=== PATIENT | male | born 1970 | race Caucasian/White ===

== ENCOUNTER → 2020-12-02 11:02 | Outpatient (CLI) | payer BC, SELFPAY ==
--- NOTE | ~2020-12-02 | XR_ITS ---
EXAMINATION: XR foot RT min 3V DATE: 12/02/2020 11:15 INDICATION: Diabetic neuropathy with ulceration at the distal right first and second metatarsals TECHNIQUE: Dorsoplantar, two oblique and lateral views of the right foot were obtained. COMPARISON: None. FINDINGS: Bone alignment is normal. There is a subtle linear lucency projecting along the medial side of the ar ticular cortex at the base of the first proximal phalanx suspicious for nondisplaced fracture.. There is subtle flattening of the articular surface at the head of the second metatarsal without underlyin g lucency or sclerosis which could represent sequela chronic osteonecrosis (Freiberg's infraction). M ild osteoarthritis at the first metatarsophalangeal and a few tarsometatarsal and interphalangeal shane nts. No cortical erosions or periosteal reaction. Small Achilles calcaneal spur. Soft tissues are unr emarkable. IMPRESSION: 1. Subtle linear lucency extending across the articular cortex at the medial base of the right first proximal phalanx suspicious for nondisplaced fracture. 2. Possible chronic osteonecrosis at the head of the second metatarsal with subtle flattening of the articular cortex but without subarticular lucency or sclerosis. Reviewed, dictated and finalized at location B. IMPRESSION: 1. Subtle linear lucency extending across the articular cortex at the medial ba se of the right first proximal phalanx suspicious for nondisplaced fracture. 2. Possible chronic osteonecrosis at the head of the second metatarsal with sub tle flattening of the articular cortex but without subarticular lucency or scle rosis.
== END ==
PROVIDERS: PCP Physician Assistant Medical; Visit Provider Physician Assistant Medical
DX: E13.40 Other specified diabetes mellitus with diabetic neuropathy, unspecified (principal); S91.309A Unspecified open wound, unspecified foot, initial encounter; X58.XXXA Exposure to other specified factors, initial encounter
CPT/HCPCS: 73630

== ENCOUNTER 2020-12-23 12:22 | Outpatient (CLI) | payer BC, SELFPAY ==
--- NOTE | ~2020-12-23 | XR_ITS ---
XR foot RT min 3V DATE: 12/23/2020 12:57 INDICATION: Puncture wound between first and second toe 2 months ago TECHNIQUE: 4 views COMPARISON: 12/02/2020 right foot FINDINGS: There is again suggestion of a linear nondisplaced intra-articular fracture of the medial a spect of the base of the proximal phalanx of the first digit. No new bone formation/healing is eviden t. There is mild osteoarthritis at the first metatarsophalangeal joint. Mild posterior calcaneal enthesopathy. No other fracture or dislocation, periosteal reaction or bone destruction is detected. IMPRESSION: Subtle nondisplaced linear intra-articular fracture of the medial base of the proximal ph alanx of the first digit Mild osteoarthritic arthritis at the first metatarsophalangeal joint Mild posterior calcaneal enthesopathy Reviewed, dictated and finalized at location A. IMPRESSION: Subtle nondisplaced linear intra-articular fracture of the medial b ase of the proximal phalanx of the first digit Mild osteoarthritic arthritis at the first metatarsophalangeal joint Mild posterior calcaneal enthesopathy
== END 2020-12-23 12:23 | disposition home or self-care (01) ==
LOC: ANHBWCIMG 12:23
PROVIDERS: PCP Family Medicine; Visit Provider Orthopaedic Surgery
DX: M79.671 Pain in right foot (principal); S92.514A Nondisplaced fracture of proximal phalanx of right lesser toe(s), initial encounter for closed fracture; M19.071 Primary osteoarthritis, right ankle and foot; M77.31 Calcaneal spur, right foot
CPT/HCPCS: 73630

== ENCOUNTER → 2021-01-06 16:50 | Outpatient (CLI) | payer BC, SELFPAY ==
--- NOTE | ~2021-01-06 | XR_ITS ---
XR shoulder LT min 2V DATE: 01/06/2021 17:02 INDICATION: Left shoulder pain, limited range of motion TECHNIQUE: 4 views COMPARISON: None FINDINGS: No fracture or dislocation, periosteal reaction or bone destruction or abnormal soft tissue calcification is detected. Normal alignment at the acromioclavicular and glenohumeral joints. IMPRESSION: No significant abnormality Reviewed, dictated and finalized at location B. IMPRESSION: No significant abnormality
== END ==
PROVIDERS: PCP Physician Assistant; Visit Provider Physician Assistant
DX: M25.512 Pain in left shoulder (principal)
CPT/HCPCS: 73030

== ENCOUNTER 2023-08-27 12:48 | Outpatient (CLI) | payer OTHER, SELFPAY ==
--- NOTE | ~2023-08-27 | CT_ITS ---
EXAMINATION:CT diagnostic chest w con DATE: 08/27/2023 13:48 INDICATION: Solitary pulmonary nodule. TECHNIQUE: Computed tomography (CT) of the chest was performed with 75 mL Omnipaque 350 intravenous c ontrast. Automated exposure control and iterative reconstruction technique were employed. The dose-le ngth product (DLP) was 555.76 mGy-cm. COMPARISON: Left shoulder radiographs 02/05/2021 FINDINGS: The lungs demonstrate mild atelectasis. A calcified left lung nodule and calcified left hil ar lymph nodes are consistent with old granulomatous disease. The heart size is normal. No pericardia l effusion. There is a left chest wall pacer with leads in the right atrium and right ventricle and c oronary sinus. There is mild chronic anterior wedging of multiple thoracic vertebral bodies. There is mild thoracic spondylosis and severe cervical spondylosis. IMPRESSION: 1. Calcified left lung nodule, consistent with old granulomatous disease. Reviewed, dictated and finalized at location E.
[2023-08-27 13:12] LABS: Estimated Glomerular Filt Rate > 60
== END 2023-08-27 12:49 | disposition home or self-care (01) ==
PROVIDERS: PCP Family Medicine; Visit Provider Family Medicine
DX: R91.1 Solitary pulmonary nodule (principal)
CPT/HCPCS: 71260; Q9967

== ENCOUNTER 2024-03-03 01:32 | Day surgery (SDC) | payer OTHER, SELFPAY ==
[2024-02-21 08:46] VITALS: BMI 30.2
[2024-03-03 09:51] VITALS: BP 120/73; PULSE 88; RESP 16; TEMP 36.3; O2SAT 99
[2024-03-03 09:54] VITALS: BMI 30.2
[2024-03-03] MEDS: LACTATED RINGERS 1,000 ML 150 ML IV CONT (10:02)
--- NOTE | 2024-03-03 10:07 | SUR.PREOP ---
blood sugar 172 per pt dexcom
--- NOTE | 2024-03-03 11:15 | P.PNAN_ITS ---
Anes - Initial Pre Proc Eval Procedure: Operation Date: 03/03/24 10:30 Proposed Procedures p Screening Colonoscopy - Rolf Mckenzie MD Date/Time: 03/03/24 11:15 Surgeon: Rolf Mckenzie MD Pre Op Diagnosis: screening colon Patient Data Age: 53 Gender: M Height: 1.88 m Weight: 106.6 kg Allergies Allergy/AdvReac Type Severity Reaction Status Date / Time metformin Allergy Unknown Nausea Verified 03/03/24 09:52 Home Medications Medication Instructions Recorded Confirmed Type pen needle, diabetic, safety 30 #100 ea 03/17/19 03/03/24 Rx gauge x 1/3 (Novofine Autocover) sildenafil 100 mg tablet 100 mg PO DAILY PRN sexual 09/06/20 03/03/24 Rx activity #30 tabs blood sugar diagnostic (Contour #200 ea 10/28/20 03/03/24 Rx Next Test Strips) pen needle, diabetic 31 gauge x #360 ea 11/04/20 03/03/24 Rx 3/16 (BD Ultra-Fine Mini Pen Needle) aspirin 81 mg tablet,delayed 81 mg PO DAILY 02/22/23 03/03/24 History release (Adult Low Dose Aspirin) insulin glargine 100 unit/mL (3 30 unit (0.3 mL) subcut DAILY #27 04/23/23 03/03/24 Rx mL) subcutaneous pen (Basaglar mL KwikPen U-100 Insulin) atorvastatin 10 mg tablet (Lipitor) 10 mg PO QHS #90 tabs 05/21/23 03/03/24 Rx empagliflozin 25 mg tablet 25 mg PO QAM #90 tabs 05/21/23 03/03/24 Rx (Jardiance) insulin aspart U-100 100 unit/mL See Rx Instructions .Route 05/21/23 03/03/24 Rx (3 mL) subcutaneous pen .COMPLEX #45 mL insulin glargine-yfgn 100 unit/mL 30 unit (0.3 mL) subcut DAILY #30 05/21/23 03/03/24 Rx (3 mL) subcutaneous pen (Semglee mL (insulin glargine-yfgn) Pen) metoprolol succinate 25 mg 25 mg PO DAILY #90 tabs 05/21/23 03/03/24 Rx tablet,extended release 24 hr spironolactone 25 mg tablet 25 mg PO DAILY #90 tabs 05/21/23 03/03/24 Rx (Aldactone) furosemide 40 mg tablet (Lasix) 40 mg PO DAILY PRN edema #30 tabs 06/14/23 03/03/24 Rx blood-glucose meter,continuous #1 ea 08/27/23 03/03/24 Rx (Dexcom G7 [employer]) blood-glucose sensor (Dexcom G7 #10 ea 08/27/23 03/03/24 Rx Sensor device) sacubitril 49 mg-valsartan 51 mg 1 tablet PO DAILY 12/27/23 03/03/24 History tablet (Entresto) Patient hx anesthesia problems: none Family hx anesthesia problems: none Results Review: All pre-operative results and documents have been reviewed as part of the pre- operative evaluation. [facility] Past Medical History Medical History Diabetes Encounter for insertion of cardiac resynchronization therapy defibrillator Encounter for insertion of cardiac resynchronization therapy pacemaker Infection of finger (~1982) Laceration of foot excluding toes without complication Overweight (BMI 25.0-29.9) Vision loss Surgical History Surgical History History of plastic surgery infected splinter in 2018 Family History Family History Grandparent Diabetes mellitus Other Breast cancer Family history of lung cancer Social History Social History Smoking status: Never smoker Alcohol intake: current Substance use: former Substance use type: does not use Living arrangements: with family Occupation/Education: retired Gender identity (if verbalized by the patient): Male Spiritual care concerns: No Anes - Eval Final PreProcedure Day of Procedure 03/03/24 11:15 Patient weight: normal Heart: regular rate and rhythm Lungs: clear to auscultation Airway: Mallampati scale class II Neurological: alert and oriented Last oral intake: >/= 8 hours ASA classification: III Emergent: no Anesthetic plan: proceed Anesthesia type and monitoring: general GIVS and standard monitoring Results Review: All pre-operative results and documents have been reviewed as part of the pre- operative evaluation. Informed Consent: The patient's anesthetic plan and its attendant risks and benefits were discussed with the patient/family/POA. Questions were solicited and answers provided to the satisfaction of the patient/family/POA.
--- NOTE | 2024-03-03 11:37 | P.HP_ITS ---
H&P: HPI History of Present Illness Date/Time: 03/03/24 11:37 Chief Complaint: This is the patient's first colonoscopy. There are no GI symptoms and there is no family history of colorectal cancer. Review of Systems Review of Systems: All systems reviewed & are unremarkable except as noted in HPI and below PMFSH Past Medical History Medical History Diabetes Encounter for insertion of cardiac resynchronization therapy defibrillator Encounter for insertion of cardiac resynchronization therapy pacemaker Infection of finger (~1982) Laceration of foot excluding toes without complication Overweight (BMI 25.0-29.9) Vision loss Surgical History Surgical History History of plastic surgery infected splinter in 2018 Family History Family History Grandparent Diabetes mellitus Other Breast cancer Family history of lung cancer Social History Social History Smoking status: Never smoker Alcohol intake: current Substance use: former Substance use type: does not use Living arrangements: with family Occupation/Education: retired Gender identity (if verbalized by the patient): Male Spiritual care concerns: No Meds Home Medications and Allergies Home Medications Medication Instructions Recorded Confirmed Type pen needle, diabetic, safety 30 #100 ea 03/17/19 03/03/24 Rx gauge x 1/3 (Novofine Autocover) sildenafil 100 mg tablet 100 mg PO DAILY PRN sexual 09/06/20 03/03/24 Rx activity #30 tabs blood sugar diagnostic (Contour #200 ea 10/28/20 03/03/24 Rx Next Test Strips) pen needle, diabetic 31 gauge x #360 ea 11/04/20 03/03/24 Rx 3/16 (BD Ultra-Fine Mini Pen Needle) aspirin 81 mg tablet,delayed 81 mg PO DAILY 02/22/23 03/03/24 History release (Adult Low Dose Aspirin) insulin glargine 100 unit/mL (3 30 unit (0.3 mL) subcut DAILY #27 04/23/23 03/03/24 Rx mL) subcutaneous pen (Basaglar mL KwikPen U-100 Insulin) atorvastatin 10 mg tablet (Lipitor) 10 mg PO QHS #90 tabs 05/21/23 03/03/24 Rx empagliflozin 25 mg tablet 25 mg PO QAM #90 tabs 05/21/23 03/03/24 Rx (Jardiance) insulin aspart U-100 100 unit/mL See Rx Instructions .Route 05/21/23 03/03/24 Rx (3 mL) subcutaneous pen .COMPLEX #45 mL insulin glargine-yfgn 100 unit/mL 30 unit (0.3 mL) subcut DAILY #30 05/21/23 03/03/24 Rx (3 mL) subcutaneous pen (Semglee mL (insulin glargine-yfgn) Pen) metoprolol succinate 25 mg 25 mg PO DAILY #90 tabs 05/21/23 03/03/24 Rx tablet,extended release 24 hr spironolactone 25 mg tablet 25 mg PO DAILY #90 tabs 05/21/23 03/03/24 Rx (Aldactone) furosemide 40 mg tablet (Lasix) 40 mg PO DAILY PRN edema #30 tabs 06/14/23 03/03/24 Rx blood-glucose meter,continuous #1 ea 08/27/23 03/03/24 Rx (Dexcom G7 Parachute Folder) blood-glucose sensor (Dexcom G7 #10 ea 08/27/23 03/03/24 Rx Sensor device) sacubitril 49 mg-valsartan 51 mg 1 tablet PO DAILY 12/27/23 03/03/24 History tablet (Entresto) Allergies Allergy/AdvReac Type Severity Reaction Status Date / Time metformin Allergy Unknown Nausea Verified 03/03/24 09:52 Exam Const: General: cooperative and healthy appearing Resp: Effort & Inspection: normal respiratory effort and able to speak in complete sentences Auscultation: clear to auscultation bilaterally Cardio: Rate: regular rate Rhythm: regular rhythm GI: Inspection: normal to inspection GI Palp: No No hepatosplenomegaly present Auscultation: normal bowel sounds Rectal Exam: deferred Skin: General skin exam: normal color Psych: Appearance: grossly normal Mental Status: mental status grossly normal Assessment and Plan Assessment and plan (1) Colon cancer screening: Code(s): Z12.11 - Encounter for screening for malignant neoplasm of colon Status: Acute Assessment and Plan: The patient is deemed a good candidate for the procedure. Consent signed. Will proceed. Plan T
[2024-03-03 12:43] VITALS: BP 93/57; PULSE 70; RESP 16; O2SAT 100
[2024-03-03 12:53] VITALS: BP 106/62; PULSE 60; RESP 14; O2SAT 100
[2024-03-03 13:03] VITALS: BP 106/62; PULSE 60; RESP 16; O2SAT 99
== END 2024-03-03 13:15 | disposition home or self-care (01) ==
PROVIDERS: PCP Family Medicine; Visit Provider Internal Medicine Gastroenterology
PROC: 0DJD8ZZ Inspection of Lower Intestinal Tract, Via Natural or Artificial Opening Endoscopic (ICD-10-PCS; CPT 45378; principal; 2024-03-03 10:30)
DX: Z12.11 Encounter for screening for malignant neoplasm of colon (principal); D12.5 Benign neoplasm of sigmoid colon; K62.1 Rectal polyp; E11.9 Type 2 diabetes mellitus without complications; Z79.4 Long term (current) use of insulin; Z79.84 Long term (current) use of oral hypoglycemic drugs
CPT/HCPCS: 45385; 88305; J2003; J2371; J2704; J7120

== ENCOUNTER 2024-12-24 12:32 | Emergency (ER) | payer OTHER, SELFPAY ==
[2024-12-24 12:45] VITALS: BP 118/85; PULSE 73; RESP 16; TEMP 35.9; O2SAT 100
--- NOTE | 2024-12-24 12:57 | ED_ITS ---
HPI - Extremity Problem General Chief complaint: Wound/Laceration Stated complaint: wound on L big toe Time Seen by Provider: 12/24/24 13:00 Source: patient, RN notes reviewed and old records reviewed Mode of arrival: ambulatory Limitations: no limitations History of Present Illness HPI Narrative: 54-year-old male with a history of diabetes presents to the [facility] a open wound to the left great toe on the plantar aspect. States that last time he has his primary care provider, per medical record was September 29, 2024, discussed poor fitting shoes, blood blisters to his feet. States that he did tighten his boots and the blood blisters disappeared. Developed a callus on the great toe which he has been cutting away. Has developed a open wound to the plantar aspect of the great toe which is beefy red. Does have some mild erythema to the dorsal aspect. Related Data Home Medications ?Medication ?Instructions ?Recorded ?Confirmed ?Last Taken ?Type aspirin 81 mg tablet,delayed 81 mg PO DAILY 02/22/23 0 12/24/24 03/02/24 History release (Adult Low Dose Aspirin) sacubitril 49 mg-valsartan 51 mg 1 tablet PO DAILY 12/24/24 03/02/24 History tablet (Entresto) Allergies Allergy/AdvReac Type Severity Reaction Status Date / Time metformin Allergy Unknown Nausea Verified 09/29/24 09:46 Review of Systems Review of Systems: All systems reviewed & are unremarkable except as noted in HPI and below Constitutional: Constitutional: Reports no additional constitutional complaints Cardiovascular: Cardiovascular: Reports no additional cardiovascular complaints, Denies chest pain and Denies dyspnea Respiratory: Respiratory: Reports no additional respiratory complaints, Denies chest congestion, Denies cough and Denies dyspnea Musculoskeletal: Musculoskeletal: Reports no additional musculoskeletal complaints Integumentary/Breasts: Skin/Breast: Reports as per HPI [facility] Past Medical History Medical History Encounter for insertion of cardiac resynchronization therapy defibrillator Encounter for insertion of cardiac resynchronization therapy pacemaker Vision loss Laceration of foot excluding toes without complication Overweight (BMI 25.0-29.9) Laceration of right hand with infection Infection of finger (~1982) Surgical History Surgical History History of plastic surgery infected splinter in 2018 Family History Family History Grandparent Diabetes mellitus Mother Alzheimer dementia Father Malignant neoplasm of prostate Other Breast cancer Family history of lung cancer Social History Social History Smoking status: Never smoker Alcohol intake: current Substance use: former Substance use type: does not use Living arrangements: with family Occupation/Education: retired Gender identity (if verbalized by the patient): Male Spiritual care concerns: No Comments At the time of my signature, I reviewed and agree with the nursing past medical, surgical, social, and family history. There is no relevant family history pertinent to the patient complaint. Exam Const: General: cooperative, healthy appearing, comfortable, no acute distress, well developed, alert and well nourished Nutritional Appearance: well nourished Orientation/consciousness: patient oriented x3 Limitations: no limitations HENMT: Head: normal to inspection Eyes: General: appearance normal, both eyes and all related structures Alignment and Position: alignment normal Neck: Neck: normal visual inspection, full ROM, no lymphadenopathy and no meningeal signs Chest: Chest palpation & inspection: normal inspection of the chest Resp: Effort & Inspection: normal respiratory effort and able to speak in complete sentences Cardio: Rate: regular rate Skin: General skin exam: normal color and no rashes or lesions noted Other: Erythema noted to the dorsal aspect of the great toe, open wound, plantar aspect of great toe, callus noted to the medial aspect of the great toe Neuro: General: patient oriented x3, gait normal, moves all extremities and no meningeal signs Cognition (Neuro): normal cognition Speech: normal speech Gait exam (Neuro): Normal gait present Extrem: General: normal to inspection, full ROM, capillary refill normal and normal gait Psych: Appearance: grossly normal and well kempt Mental Status: mental status grossly normal Speech and movement: Normal speech and movement present and Clear speech present Affect: normal affect Attitude: cooperative Course Course Level of Care: Express Care Visit Vital Signs Vital signs: Vital Signs Temperature 96.7 F L 12/24/24 12:45 Pulse Rate 73 12/24/24 12:45 Respiratory Rate 16 12/24/24 12:45 Blood Pressure 118/85 12/24/24 12:45 Pulse Oximetry 100 12/24/24 12:45 Temperature 96.7 F L 12/24/24 12:45 Pulse Rate 73 12/24/24 12:45 Respiratory Rate 16 12/24/24 12:45 Blood Pressure 118/85 12/24/24 12:45 Pulse Oximetry 100 12/24/24 12:45 Reviewed MDM - Extremity (Nontraumatic) MDM Narrative Medical decision making narrative: Due to patient's patient's history diabetes with current continues glucose monitor reading of 287, will cover the concern for cellulitis, on healing diabetic wound with Keflex, referral made to podiatry. Patient is sitting comfortably in exam room. Nontoxic, vitals are stable. Patient states he started with blisters in September, 3 months ago. Has been trying to trim the callus on his toe and developed a wound. Discharge instructions reviewed with patient, as well as provided in writing per nursing staff. The instructions also include specific and strict return/GO TO THE ER as well as f/u information. All questions have been answered, and the patient deny any further questions with discharge and discharge plan. Some parts of this dictation were generated by voice recognition software and may contain typographical and/or grammatical inaccuracies. Differential Diagnosis Differential diagnosis: Likely cellulitis Critical Care Time Critical Care Time Critical Care Time: No Discharge Plan Discharge Clinical Impression: Open wound of left great toe, History of diabetes mellitus Patient Disposition: Home Condition: Stable Instructions: Antibiotic Form, Chronic Wounds (ED) Additional Instructions: Keep your feet clean and dry. Change socks often. Follow-up with podiatry Follow-up with primary care provider Patient Language: Bangladeshi Prescriptions: New cephalexin 500 mg capsule 500 mg PO QID 14 Days Qty: 56 0RF No Action sildenafil 100 mg tablet 100 mg PO DAILY PRN (Reason: sexual activity) Qty: 30 5RF Rx Instructions: administer 30 minutes to 4 hours before activity. max dose 100mg/24hr. aspirin [Adult Low Dose Aspirin] 81 mg tablet,delayed release (DR/EC) 81 mg PO DAILY Entresto 49-51 mg tablet 1 tablet PO DAILY (DME) Novofine Autocover 30 gauge x 1/3 needle See Rx Instructions .ROUTE .MEDSUPPLY Qty: 100 0RF Rx Instructions: As directed (DME) Contour Next Test Strips Strip See Rx Instructions .ROUTE .MEDSUPPLY Qty: 200 3RF Rx Instructions: Use to test blood sugars AC and HS and PRN furosemide [Lasix] 40 mg tablet 40 mg PO DAILY PRN (Reason: edema) Qty: 30 2RF (DME) Dexcom G7 Head [employer] Resources Misc See Rx Instructions .Route Qty: 1 0RF Rx Instructions: As directed (DME) pen needle, diabetic [BD Ultra-Fine Mini Pen Needle] 31 gauge x 3/16 needle See Rx Instructions .ROUTE .MEDSUPPLY Qty: 360 3RF Rx Instructions: use to test blood sugar 4 times daily (DME) Dexcom G7 Sensor Device See Rx Instructions .Route Qty: 6 1RF Rx Instructions: As directed insulin aspart U-100 100 unit/mL (3 mL) insulin pen See Rx Instructions .ROUTE .COMPLEX Qty: 45 5RF Dose Instruction: INJECT 25 UNITS UNDER THE SKIN THREE TIMES DAILY BEFORE MEALS ACCORDING TO SLIDING SCALE. MAX 75 UNITS PER DAY Rx Instructions: INJECT 25 UNITS UNDER THE SKIN THREE TIMES DAILY BEFORE MEALS ACCORDING TO SLIDING SCALE. MAX 75 UNITS PER DAY Mounjaro 2.5 mg/0.5 mL pen injector 2.5 mg subcut WEEKLY Qty: 6 1RF Rx Instructions: for 4 weeks spironolactone [Aldactone] 25 mg tablet 25 mg PO DAILY Qty: 90 1RF metoprolol succinate 25 mg tablet extended release 24 hr 25 mg PO DAILY Qty: 90 1RF atorvastatin [Lipitor] 10 mg tablet 10 mg PO QHS Qty: 90 1RF Jardiance 25 mg tablet 25 mg PO QAM Qty: 90 1RF Follow-up/Referrals: David Ruiz Jr., DPM [Physician, Podiatry] Dillon Lorenzo MD [Primary Care Provider, Family Practice] - 1 Week Jordi Powell DPM [Physician, Podiatry] Stand Alone Forms: Work/School Release IP Time of Disposition: 13:13
== END 2024-12-24 13:21 | disposition home or self-care (01) ==
PROVIDERS: Emergency Provider Nurse Practitioner; PCP Family Medicine
DX: S91.102A Unspecified open wound of left great toe without damage to nail, initial encounter (principal); X58.XXXA Exposure to other specified factors, initial encounter; E11.9 Type 2 diabetes mellitus without complications; Z79.01 Long term (current) use of anticoagulants; Z79.85 Long-term (current) use of injectable non-insulin antidiabetic drugs; Z79.84 Long term (current) use of oral hypoglycemic drugs
CPT/HCPCS: 99213; G0463

== ENCOUNTER 2025-01-31 07:11 | Outpatient (RCR) | payer OTHER, SELFPAY ==
[2025-01-03 10:00] VITALS: BMI 31.1
--- NOTE | 2025-01-03 10:07 | WNDPHOTO ---
PHOTO ONLY - See Nursing Notes and/ or assessments for documentation.
--- NOTE | 2025-01-03 10:19 | WNDPHOTO ---
PHOTO ONLY - See Nursing Notes and/ or assessments for documentation.
== END 2025-03-19 08:15 | disposition home or self-care (01) ==
LOC: ANHWOC 07:11
PROVIDERS: PCP Family Medicine; Visit Provider Nurse Practitioner Family
DX: S91.102A Unspecified open wound of left great toe without damage to nail, initial encounter (principal)
CPT/HCPCS: 99213; 99214; G0463